=== PATIENT | male | born 1970 | race Caucasian/White ===

== ENCOUNTER 2017-08-17 12:14 | Observation (INO) | payer MEDICAID, SELFPAY ==
[2017-08-17 12:34] VITALS: BMI 22.9
[2017-08-17 12:35] VITALS: BP 134/88; PULSE 66; RESP 16; TEMP 36.8; O2SAT 100
[2017-08-17 12:49] VITALS: BMI 23.0
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
[2017-08-17 13:45] LABS: Absolute Lymphocyte Count 1.89 X10^3/ul (0.83-4.51); Absolute Neutrophil Count 6.5 X10^3/uL (2.0-7.7); Basophil# 0.03 X10^3/uL; Basophil% 0.3 % (0-1); Eosinophil# 0.04 X10^3/uL; Eosinophils% 0.4 % (0-5); Hematocrit 40.4 % (40-54); Hemoglobin 13.8 g/dl (13.0-16.5); Lymphocyte # 1.89 X10^3/ul (4.0); Mean Corp Hgb Conc 34.2 g/gl (32-36); Mean Corpuscular Hgb 32.1 pg (27.0-32.0); Monocyte# 0.46 X10^3/uL; Monocyte% 5.1 % (0-10); Neutrophil # 6.54 X10^3/uL (2.7-7.7); Platelet Count 302 K/mm3 (150-450); RBC Distribution Width CV 12.2 % (11.6-14.6)
[2017-08-17 13:46] LABS: POSITIVE COUNT NO; POSITIVE DIFFERENTIAL NO; POSITIVE MORPHOLOGY NO
[2017-08-17] MEDS: cloNIDine HCl 0.1 MG Tablet 0.2 MG PO (13:50)
[2017-08-17] MEDS: Buprenorphine HCl 2 MG TAB.SUBL SL ×2 (13:50→21:14)
[2017-08-17] MEDS: Dicyclomine 10 MG Capsule 20 MG PO ×2 (13:51→21:15)
[2017-08-17] MEDS: Methocarbamol 750 MG Tablet PO ×2 (13:51→21:14)
[2017-08-17 13:58] LABS: Amphetamine Urine VISTA NEGATIVE (<1000 ng/mL); Barbiturate Urine VISTA NEGATIVE (< 200 ng/mL); Benzodiazepine Urine VISTA NEGATIVE (< 200 ng/mL); Cocaine Urine VISTA NEGATIVE (< 300 ng/mL); Ecstacy Urine VISTA NEGATIVE (< 500 ng/mL); Methadone Urine VISTA NEGATIVE (< 300 ng/mL); PCP Urine VISTA NEGATIVE (< 25 ng/mL); THC Urine VISTA NEGATIVE (< 50 ng/mL); Vista UDS pH Range 6
[2017-08-17 13:59] LABS: AST(SGOT) 13 U/L (15-37); Alanine Aminotransfer ALT/SGPT 22 U/L (12-78); Albumin, Serum 3.8 g/dL (3.4-5.0); Alkaline Phosphatase 71 U/L (45-117); Anion Gap 8 (5-15); BUN 10 mg/dL (7-18); BUN/Creat Ratio 12.7 RATIO (10-20); Calcium,Total 9.2 mg/dL (8.5-10.1); Chloride 100 mmol/L (98-107); Creatinine, Serum 0.79 mg/dL (0.70-1.30); EST Glomerular Filtration Rate 113 mL/min (>60); Est Glom Filt Rate - Afr Amer 136 mL/min (>60); Glucose 99 mg/dL (70-110); Potassium 4.7 mmol/L (3.5-5.1); Protein, Total 7.8 g/dL (6.4-8.2); Sodium Level 138 mmol/L (136-145)
[2017-08-17 14:00] VITALS: BP 134/88; PULSE 66; RESP 16; TEMP 36.8
[2017-08-17 16:30] VITALS: BP 133/89; PULSE 76; RESP 18; TEMP 36.8; O2SAT 98
[2017-08-17 16:43] VITALS: BP 133/89; PULSE 76; RESP 18; TEMP 36.8
[2017-08-17] MEDS: cloNIDine HCl 0.1 MG Tablet PO ×2 (16:46→21:14)
[2017-08-17] MEDS: QUEtiapine 25 MG Tablet PO (16:46)
--- NOTE | 2017-08-17 17:04 | CHAPLAIN ---
Type of Pastoral Visit _x__ Initial Visit ___ Follow-up Visit ___ On-call Visit ___ General Patient Visit ___ Spiritual Assessment ___ Family Conference ___ Bereavement ___ Rapid Response ___ Code Blue ___ Other (describe below) Pastoral Care Referral From _x__ Patient ___ Family ___ Nurse ___ Physician ___ Video Production Assistant ___ Electronic Warfare Specialist _x - [facility] staff __ Other (describe below) Sacrament/Intervention _x__ Active listening ___ Anointing ___ Jew ___ Bereavement ___ Communion _x__ Vane exploration ___ _x__ Life review _x__ Prayer ___ Reconciliation ___ Sacrament of Sick _x__ Supportive presence ___ Wedding ___ Other (describe below) Pastoral Comments
[2017-08-17 21:03] VITALS: BP 154/94; PULSE 114; RESP 16; TEMP 37.2
[2017-08-17] MEDS: Ibuprofen 400 MG Tablet 800 MG PO (21:14)
[2017-08-17] MEDS: traZODone 50 MG Tablet PO (21:15)
--- NOTE | 2017-08-17 21:15 | NURSING ---
Nicotine patch not seen on patient's shoulder upon shift assessment. Patient stated he had removed it and he did not want patch. Offered to patient that patch is available if he changes his mind. Patch removed from trash and properly discarded.
[2017-08-18 01:40] VITALS: BP 124/79; PULSE 92; RESP 18; TEMP 36.6
[2017-08-18] MEDS: cloNIDine HCl 0.1 MG Tablet PO ×3 (01:47→20:21)
[2017-08-18] MEDS: QUEtiapine 25 MG Tablet PO ×3 (01:47→17:03)
[2017-08-18] MEDS: Acetaminophen 325 MG Tablet 650 MG PO ×2 (01:47→20:21)
[2017-08-18 05:48] VITALS: BP 122/85; PULSE 70; RESP 18; TEMP 36.8
[2017-08-18] MEDS: Dicyclomine 10 MG Capsule 20 MG PO ×2 (05:56→13:25)
[2017-08-18] MEDS: Ibuprofen 400 MG Tablet 800 MG PO ×2 (05:56→17:03)
[2017-08-18] MEDS: Methocarbamol 750 MG Tablet PO ×3 (05:56→20:21)
[2017-08-18] MEDS: Buprenorphine HCl 2 MG TAB.SUBL SL ×3 (05:56→20:50)
[2017-08-18 09:50] VITALS: BP 108/72; PULSE 59; RESP 16; TEMP 36.9
[2017-08-18] MEDS: Multivitamins,Ther W-Minerals Tablet 1 TABLET PO (09:56)
[2017-08-18 13:20] VITALS: BP 102/62; PULSE 54; RESP 16; TEMP 37.1
[2017-08-18 17:07] VITALS: BP 124/86; PULSE 81; RESP 18; TEMP 36.8
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
[2017-08-18 20:11] VITALS: BP 120/83; PULSE 69; RESP 16; TEMP 36.9
--- NOTE | 2017-08-18 20:32 | NURSING ---
Patient seems very encouraged at this time. Received text from Son who is also in rehab and says he is doing well. Patient showed message to this nurse and seems hopeful that they will all remain, as a family, drug free. He proceeded to show this nurse pictures/videos on his phone of his son. Patient remains fast paced in speech and often repeats himself. Will continue to monitor.
[2017-08-18] MEDS: traZODone 50 MG Tablet PO (20:50)
[2017-08-19] MEDS: Dicyclomine 10 MG Capsule 20 MG PO ×2 (04:49→11:33)
[2017-08-19] MEDS: Buprenorphine HCl 2 MG TAB.SUBL SL ×2 (04:49→18:11)
[2017-08-19] MEDS: Methocarbamol 750 MG Tablet PO ×3 (04:50→22:50)
[2017-08-19 04:51] VITALS: BP 131/86; PULSE 73; RESP 16; TEMP 36.5
[2017-08-19 08:00] VITALS: RESP 18
[2017-08-19] MEDS: Multivitamins,Ther W-Minerals Tablet 1 TABLET PO (09:25)
[2017-08-19 10:00] VITALS: BP 131/89; PULSE 70; RESP 18; TEMP 36.8
--- NOTE | 2017-08-19 10:34 | PCM.PROGNOTE ---
Patient Problems: Active and Suspected Problems Opiate withdrawal (Acute) Subjective: He is much more alert today. He no longer appears drowsy and is not diaphoretic. He is making much more sense today and is not perseverating. Is appropriate. He has a good appetite today and intake. He states he feels a little restless but other than that is asymptomatic. He is afebrile with stable vital signs. - Physical Exam General: Alert, Oriented x3, Cooperative, No apparent distress Lungs: Clear to auscultation Cardiovascular: Regular rate, Regular Rhythm, Normal S1, Normal S2, No murmurs Abdomen: Bowel Sounds Present, Soft, Non Tender, Non-Distended Extremities: No Calf Tenderness Skin: No rashes Neurological: Cranial nerves II-XII grossly intact, Neuro grossly intact Psych/Mental Status: Normal Affect, Appropriate Vital Signs Temp Pulse Resp BP Pulse Ox 97.7 F 73 18 131/86 98 08/19/17 04:51 08/19/17 04:51 08/19/17 08:00 08/19/17 04:51 08/17/17 16:30 Oxygen Delivery Method Room Air Weight: 146 lb 9.6 oz Body Mass Index (BMI) 22.9 Intake and Output for Last 24 Hours 08/17/17 08/18/17 08/19/17 23:59 23:59 22:59 Intake Total 500 800 320 Balance 500 800 320 Assessment/Plan Active and Suspected Problems Opiate withdrawal (Acute) Impressions 1. Acute opiate withdrawal 2. Addiction to heroin and Carfentanil...prior to that used prescription narcotics for many years. Has been using Suboxone for at least a year.....states he has been taking something for many years.......usually pills. 3. Marijuana usage - started as a teenager...used to grow and sell 4. Tobacco dependence Hepatitis panel is still pending. Continue with [facility] opiate withdrawal protocol He plans on attending [facility] outpatient drug counseling/rehab at discharge. He also plans on continuing to work full-time. His will be attending the same rehab program. He talked to his son on the phone last night who is still in [facility] program at [place] and his son is already asking if he threw away all the drug paraphernalia and if he has any money. He thinks his son is already planning on getting high as soon as he is discharged from [facility]. His son lives with him. He has another son who is also IVD user but is working and taking Suboxone everyday but still getting high every other weekend. It will be a real challenge for him to stay drug free in the same house with a son who is using. He is not sure if he wants to take Suboxone or not at [place].
--- NOTE | 2017-08-19 10:41 | PN_ITS ---
Patient Problems: Active and Suspected Problems Opiate withdrawal (Acute) Subjective: He is much more alert today. He no longer appears drowsy and is not diaphoretic. He is making much more sense today and is not perseverating. Is appropriate. He has a good appetite today and intake. He states he feels a little restless but other than that is asymptomatic. He is afebrile with stable vital signs. - Physical Exam General: Alert, Oriented x3, Cooperative, No apparent distress Lungs: Clear to auscultation Cardiovascular: Regular rate, Regular Rhythm, Normal S1, Normal S2, No murmurs Abdomen: Bowel Sounds Present, Soft, Non Tender, Non-Distended Extremities: No Calf Tenderness Skin: No rashes Neurological: Cranial nerves II-XII grossly intact, Neuro grossly intact Psych/Mental Status: Normal Affect, Appropriate Vital Signs Temp Pulse Resp BP Pulse Ox 97.7 F 73 18 131/86 98 08/19/17 04:51 08/19/17 04:51 08/19/17 08:00 08/19/17 04:51 08/17/17 16:30 Oxygen Delivery Method Room Air Weight: 146 lb 9.6 oz Body Mass Index (BMI) 22.9 Intake and Output for Last 24 Hours 08/17/17 08/18/17 08/19/17 23:59 23:59 22:59 Intake Total 500 800 320 Balance 500 800 320 Assessment/Plan Active and Suspected Problems Opiate withdrawal (Acute) Impressions 1. Acute opiate withdrawal 2. Addiction to heroin and Carfentanil...prior to that used prescription narcotics for many years. Has been using Suboxone for at least a year.....states he has been taking something for many years.......usually pills. 3. Marijuana usage - started as a teenager...used to grow and sell 4. Tobacco dependence Hepatitis panel is still pending. Continue with [facility] opiate withdrawal protocol He plans on attending [facility] outpatient drug counseling/rehab at discharge. He also plans on continuing to work full-time. His will be attending the same rehab program. He talked to his son on the phone last night who is still in [facility] program at [place] and his son is already asking if he threw away all the drug paraphernalia and if he has any money. He thinks his son is already planning on getting high as soon as he is discharged from [facility]. His son lives with him. He has another son who is also IVD user but is working and taking Suboxone everyday but still getting high every other weekend. It will be a real challenge for him to stay drug free in the same house with a son who is using. He is not sure if he wants to take Suboxone or not at [place].
[2017-08-19 14:00] VITALS: BP 144/82; PULSE 69; RESP 18; TEMP 36.5
[2017-08-19 18:00] VITALS: BP 148/102; PULSE 61; RESP 18; TEMP 36.8
[2017-08-19 22:41] VITALS: BP 143/95; PULSE 63; RESP 18; TEMP 36.6
[2017-08-19] MEDS: Ibuprofen 400 MG Tablet 800 MG PO (22:50)
[2017-08-19] MEDS: traZODone 50 MG Tablet PO (22:50)
[2017-08-20] MEDS: Buprenorphine HCl 2 MG TAB.SUBL SL (05:22)
[2017-08-20 05:24] VITALS: BP 135/87; PULSE 72; RESP 18; TEMP 36.9
[2017-08-20] MEDS: cloNIDine HCl 0.1 MG Tablet PO (05:27)
--- NOTE | 2017-08-20 09:32 | PCM.DC ---
- Discharge Diagnoses Current Active Problems: Current Active and Chronic Problems Opiate withdrawal (Acute) Heroin addiction (Chronic) Marijuana smoker (Chronic) Tobacco dependence (Chronic) You will use the following diet at home:: No restrictions Your food should be the consistency of: Regular Your liquids should be the consistency of: Regular/Thin Discharge Activity: Return to Normal Activity Call your doctor if you observe: Fever of 101 or Higher Allergies/Adverse Reactions: Allergies No Known Allergies Allergy (Verified 08/17/17 12:37) Medications to take at Discharge No Known/Unobtainable [No Known Home Medications] 08/17/17 Primary Care Physician: Care Physician,No Primary [Primary Care Provider] - Proposed Discharge Date: 08/20/17
[2017-08-20 09:45] VITALS: BP 133/90; PULSE 81; RESP 18; TEMP 36.7; O2SAT 100
[2017-08-20 09:49] VITALS: BP 133/90; PULSE 81; RESP 18; TEMP 36.7; O2SAT 100
--- NOTE | 2017-08-20 10:10 | NURSING ---
Per aliya Duke, request- (to fax to pt. discharge facility)- MAR and discharge instructions printed off and sent with aliya Esparza.
--- NOTE | 2017-08-20 11:23 | PCM.DC.SUM ---
Discharge Date and Diagnosis Date of Admission: 08/17/17 Date of Discharge: 08/20/17 - Primary Discharge Diagnosis Acute opiate withdrawal - Secondary Discharge Diagnosis Chronic Problems Heroin and Carfentanil addiction (Chronic) Marijuana smoker (Chronic) Tobacco dependence (Chronic) Hospital Course and Treatment Imaging Results: Laboratory Last Values WBC 9.0 K/mm3 (4.4-11.0) 08/17/17 13:24 RBC 4.30 M/mm3 (4.6-6.2) L 08/17/17 13:24 Hgb 13.8 g/dl (13.0-16.5) 08/17/17 13:24 Hct 40.4 % (40-54) 08/17/17 13:24 MCV 94.0 fL (80-94) 08/17/17 13:24 MCH 32.1 pg (27.0-32.0) H 08/17/17 13:24 MCHC 34.2 g/gl (32-36) 08/17/17 13:24 RDW 12.2 % (11.6-14.6) 08/17/17 13:24 RDW Differential 41.0 fl (35.1-43.9) 08/17/17 13:24 Plt Count 302 K/mm3 (150-450) 08/17/17 13:24 MPV 10.0 fl (6.2-12.0) 08/17/17 13:24 Immature Gran % (Auto) 0.200 % (0.0-0.9) 08/17/17 13:24 Neut % (Auto) 73.0 % (47-70) H 08/17/17 13:24 Lymph % (Auto) 21.0 % (19-41) 08/17/17 13:24 [place] % (Auto) 5.1 % (0-10) 08/17/17 13:24 Eos % (Auto) 0.4 % (0-5) 08/17/17 13:24 Baso % (Auto) 0.3 % (0-1) 08/17/17 13:24 Absolute Neuts (auto) 6.5 X10^3/uL (2.0-7.7) 08/17/17 13:24 Absolute Lymphs (auto) 1.89 X10^3/ul (0.83-4.51) 08/17/17 13:24 Total Counted Not Reportable 08/17/17 13:24 Sodium 138 mmol/L (136-145) 08/17/17 13:24 Potassium 4.7 mmol/L (3.5-5.1) 08/17/17 13:24 Chloride 100 mmol/L (98-107) 08/17/17 13:24 Carbon Dioxide 30.0 mmol/L (21.0-32.0) 08/17/17 13:24 Anion Gap 8 (5-15) 08/17/17 13:24 BUN 10 mg/dL (7-18) 08/17/17 13:24 Creatinine 0.79 mg/dL (0.70-1.30) 08/17/17 13:24 Estim Creat Clear Calc 110.40 ml/min 08/17/17 13:24 Est GFR (MDRD) Af Amer 136 mL/min (>60) 08/17/17 13:24 Est GFR (MDRD) Non-Af 113 mL/min (>60) 08/17/17 13:24 BUN/Creatinine Ratio 12.7 RATIO (10-20) 08/17/17 13:24 Glucose 99 mg/dL (70-110) 08/17/17 13:24 Calcium 9.2 mg/dL (8.5-10.1) 08/17/17 13:24 Total Bilirubin 0.60 mg/dL (0.20-1.00) 08/17/17 13:24 AST 13 U/L (15-37) L 08/17/17 13:24 ALT 22 U/L (12-78) 08/17/17 13:24 Alkaline Phosphatase 71 U/L (45-117) 08/17/17 13:24 Total Protein 7.8 g/dL (6.4-8.2) 08/17/17 13:24 Albumin 3.8 g/dL (3.4-5.0) 08/17/17 13:24 Globulin 4.0 g/dL (2.2-4.2) 08/17/17 13:24 Albumin/Globulin Ratio 1.0 RATIO (0.9-2.4) 08/17/17 13:24 Urine Opiates Screen NEGATIVE (< 300 ng/mL) 08/17/17 13:10 Urine Methadone Screen NEGATIVE (< 300 ng/mL) 08/17/17 13:10 Ur Barbiturates Screen NEGATIVE (< 200 ng/mL) 08/17/17 13:10 Ur Phencyclidine Scrn NEGATIVE (< 25 ng/mL) 08/17/17 13:10 Ur Amphetamines Screen NEGATIVE (<1000 ng/mL) 08/17/17 13:10 U Methamphetamin-MDMA NEGATIVE (< 500 ng/mL) 08/17/17 13:10 U Benzodiazepines Scrn NEGATIVE (< 200 ng/mL) 08/17/17 13:10 Urine Cocaine Screen NEGATIVE (< 300 ng/mL) 08/17/17 13:10 U Cannabinoids Screen NEGATIVE (< 50 ng/mL) 08/17/17 13:10 Ur Drug Screen Comment 08/17/17 13:10 none Operations: None Procedures: None Summary of Care Provided: The patient is a 47 year old M with a > 20 year hx of abuse of opiates. He started with marijuana as a teenager and progressed to oral narcotic abuse. He started using IV heroin when he could no longer get Percocet easily. He got off IV heroin and was using Subutex for the best year. His son who lives with him is an IVDA and has been using Carfentanil. He tried Carfentanil and then got hooked. He has been late for work and missing work recently so he presented to the [facility] office requesting admission for medical stabilization for acute opiate withdrawal. He was admitted to the hospital and the [facility] protocol for opiate withdrawal was initiated. CBC and CMP were unremarkable and the toxicology screen was negative. Hepatitis panel was ordered and is still pending at the time of discharge. On 08/20 he was alert with stable vital signs and he was afebrile. On physical examination the lungs were clear to auscultation, the heart had a regular rate and rhythm without murmur, the abdomen was and nontender and he had no rash and no evidence of any cellulitis. He plans on attending an outpatient program. His , who is also a narcotic abuser will also attend. His son finished a [facility] Program on 08/19 in [place] and used immediately upon DC. He is at high risk for relapse living in a household with an active IV drug user. Discharge Activity: Return to Normal Activity Call your doctor if you observe: Fever of 101 or Higher Home Medications: Medications to take at Discharge No Known/Unobtainable [No Known Home Medications] 08/17/17 Primary Care Physician: Care Physician,No Primary [Primary Care Provider] - Disposition: Home Minutes spent on discharge:: 30 Patient Condition:: Good Meaningful Use Info Meaningful Use Diagnoses (Choose all that apply): None applicable
[2017-08-22 12:08] LABS: HEPATITIS B SURFACE AG Confirm. indicated (Negative); Hepatitis A IgM Antibody Negative (Negative); Hepatitis B Core AB IgM Negative (Negative)
[2017-08-22 14:30] LABS: HIV 1/0/2 SCREEN 4TH GEN Non Reactive (Non Reactive); Hep C Antibodies 0.5 s/co ratio (0.0-0.9)
== END 2017-08-20 10:20 | disposition home or self-care (01) | DRG 773 ==
LOC: MS2 12-24 07:26
PROVIDERS: Admitting Provider Internal Medicine; Visit Provider Internal Medicine
DX: F11.23 Opioid dependence with withdrawal (principal); F17.210 Nicotine dependence, cigarettes, uncomplicated; F12.90 Cannabis use, unspecified, uncomplicated
CPT/HCPCS: 36415; 80053; 80074; 80307; 85025; 86703; 99218; 99406; G0378; G0379

== ENCOUNTER 2018-10-30 15:48 | Inpatient (IN) | payer MEDICAID, SELFPAY ==
[2018-10-30 16:04] VITALS: BP 152/111; PULSE 108; RESP 18; TEMP 36.9; O2SAT 100
[2018-10-30 16:08] VITALS: BMI 25.3
[2018-10-30 16:12] VITALS: BMI 25.4
--- NOTE | 2018-10-30 16:19 | EKG12_ITS ---
Test Reason : CARDIAC HISTORY Blood Pressure : / mmHG Vent. Rate : 082 BPM Atrial Rate : 082 BPM P-R Int : 124 ms QRS Dur : 086 ms QT Int : 380 ms P-R-T Axes : 066 044 030 degrees QTc Int : 443 ms Normal sinus rhythm Normal ECG Confirmed by BREANNA HENRY, JAMEE ([id number]), purchase request editor JUDSON DAVIS ([id number]) on 11/08/2018 2:45:29 PM Referred By: Juan Jose Mayes Confirmed By:JAMEE CARLOS MD
[2018-10-30 16:29] VITALS: PULSE 108; RESP 14; O2SAT 99
[2018-10-30 16:36] VITALS: BP 152/111; PULSE 108; RESP 16; TEMP 36.7
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
[2018-10-30] MEDS: Buprenorphine HCl 2 MG TAB.SUBL 4 MG SL (17:50)
[2018-10-30] MEDS: Loperamide 2 MG Capsule PO (17:51)
[2018-10-30] MEDS: Ibuprofen 600 MG Tablet PO (17:51)
[2018-10-30] MEDS: Dicyclomine 10 MG Capsule 20 MG PO (17:51)
[2018-10-30 18:06] LABS: Absolute Lymphocyte Count 1.91 X10^3/ul (0.83-4.51); Absolute Neutrophil Count 8.3 X10^3/uL (2.0-7.7); Basophil# 0.03 X10^3/uL; Basophil% 0.3 % (0-1); Eosinophil# 0.04 X10^3/uL; Eosinophils% 0.4 % (0-5); Hematocrit 37.9 % (40-54); Hemoglobin 12.9 g/dl (13.0-16.5); Lymphocyte # 1.91 X10^3/ul (4.0); Lymphocyte % 17.7 % (19-41); Mean Corpuscular Hgb 30.9 pg (27.0-32.0); Mean Corpuscular Volume 90.7 fL (80-94); Mean Platelet Vol. 10.2 fl (6.2-12.0); Monocyte# 0.47 X10^3/uL; Monocyte% 4.4 % (0-10); Neutrophil # 8.32 X10^3/uL (2.7-7.7); Neutrophil % 76.9 % (47-70); Platelet Count 343 K/mm3 (150-450); RBC Distribution Width CV 13.1 % (11.6-14.6); Red Blood Count 4.18 M/mm3 (4.6-6.2); White Blood Count 10.8 K/mm3 (4.4-11.0)
[2018-10-30 18:07] LABS: POSITIVE COUNT NO; POSITIVE DIFFERENTIAL NO; POSITIVE MORPHOLOGY NO
[2018-10-30 18:13] LABS: Prothrombin Time (Protime)PT. 13.1 SECONDS (11.7-14.9)
[2018-10-30] MEDS: cloNIDine HCl 0.1 MG Patch TRANSDERM. (18:19)
[2018-10-30] MEDS: Clindamycin HCl 150 MG Capsule 300 MG PO ×2 (18:20→22:12)
[2018-10-30 18:23] LABS: ALB/GLOB Ratio 0.8 RATIO (0.9-2.4); AST(SGOT) 28 U/L (15-37); Alanine Aminotransfer ALT/SGPT 49 U/L (16-61); Albumin, Serum 3.5 g/dL (3.2-5.0); Alkaline Phosphatase 121 U/L (45-117); Anion Gap 9 (5-15); BUN 11 mg/dL (7-18); BUN/Creat Ratio 12.1 RATIO (10-20); Chloride 105 mmol/L (98-107); Creatinine, Serum 0.91 mg/dL (0.70-1.30); EST Glomerular Filtration Rate 95 mL/min (>60); Est Glom Filt Rate - Afr Amer 115 mL/min (>60); Estimated Creatinine Clearance 94.83 ml/min; Globulin 4.5 g/dL (2.2-4.2); Glucose 117 mg/dL (74-106); Potassium 4.5 mmol/L (3.5-5.1); Sodium Level 140 mmol/L (136-145)
[2018-10-30 21:31] LABS: Amphetamine Urine VISTA POSITIVE (<1000 ng/mL); Barbiturate Urine VISTA NEGATIVE (< 200 ng/mL); Benzodiazepine Urine VISTA NEGATIVE (< 200 ng/mL); Cocaine Urine VISTA NEGATIVE (< 300 ng/mL); Ecstacy Urine VISTA NEGATIVE (< 500 ng/mL); Methadone Urine VISTA NEGATIVE (< 300 ng/mL); PCP Urine VISTA NEGATIVE (< 25 ng/mL); THC Urine VISTA NEGATIVE (< 50 ng/mL); Vista UDS pH Range 7
[2018-10-30 22:04] VITALS: BP 162/97; PULSE 99; RESP 16; TEMP 36.6
[2018-10-30] MEDS: Pramipexole Di-HCl 0.25 MG Tablet PO (22:13)
[2018-10-30] MEDS: hydrOXYzine PAM 25 MG Capsule 50 MG PO (22:13)
[2018-10-30] MEDS: Methocarbamol 750 MG Tablet PO (22:13)
[2018-10-31] MEDS: Dicyclomine 10 MG Capsule 20 MG PO (00:52)
[2018-10-31] MEDS: chlordiazePOXIDE 25 MG Capsule PO ×3 (00:52→14:40)
[2018-10-31 01:56] VITALS: BP 159/102; PULSE 97; RESP 16; TEMP 36.7
[2018-10-31] MEDS: Buprenorphine HCl 2 MG TAB.SUBL 4 MG SL ×2 (02:01→09:56)
[2018-10-31] MEDS: Ibuprofen 600 MG Tablet PO ×2 (02:01→09:55)
[2018-10-31] MEDS: Methocarbamol 750 MG Tablet PO ×2 (04:34→12:14)
[2018-10-31] MEDS: hydrOXYzine PAM 25 MG Capsule 50 MG PO ×2 (04:34→12:14)
[2018-10-31 05:55] VITALS: BP 149/98; PULSE 88; RESP 16; TEMP 36.6
[2018-10-31 08:24] VITALS: BP 148/92; PULSE 85; RESP 18; TEMP 36.9; O2SAT 100
[2018-10-31 08:48] VITALS: BP 148/92; PULSE 85; RESP 18; TEMP 36.9
--- NOTE | 2018-10-31 08:58 | PCM.PN.HOSP ---
Patient Problems: Active and Suspected Problems Cellulitis of left foot (Acute) Prescribed Clindamycin but has not been taking Subjective: Patient was seen and examined. No acute events overnight. He complains of severe restless legs. He also has hot and cold flashes. Denied any nausea vomiting or diarrhea. He has noted redness over the dorsum of the left arm. He admits to having last injected over the left hand. Denies any fever or chills Vitals/I&O's: Vital Signs Temp Pulse Resp BP Pulse Ox 98.4 F 85 18 148/92 H 100 10/31/18 08:48 10/31/18 08:48 10/31/18 08:48 10/31/18 08:48 10/31/18 08:24 Oxygen Delivery Method Room Air Weight: 73.5 kg Body Mass Index (BMI) 25.3 Intake and Output for Last 24 Hours 10/29/18 10/30/18 10/31/18 23:59 23:59 23:59 Intake Total 500 / 500 580 / 580 Balance 500 / 500 580 / 580 General: Alert, Oriented x3, Cooperative, - - Feels restless HEENT: Atraumatic, PERRLA, EOMI, Normocephalic Oral: Moist Mucosa Neck: Supple, No JVD, Negative Carotid Bruits Lungs: Clear to auscultation, Normal air movement Cardiovascular: Regular rate, Regular Rhythm, Normal S1, Normal S2, No murmurs Abdomen: Bowel Sounds Present, Soft, Non Tender, Non-Distended, No Hepato-splenomegaly Extremities: Edema - and redness over the dorsum of the left hand with mild edema over the metacarpal region. Skin: - - See above hand description Musculoskeletal: No Tenderness to Palpation of Joints or Extremities Lymphatic: No Cervical, Supraclavicular, or Inguinal Adenopathy Neurological: Cranial nerves II-XII grossly intact, Neuro grossly intact Psych/Mental Status: Normal Affect, Appropriate Laboratory Results 10/30/18 17:55: WBC 10.8, RBC 4.18 L, Hgb 12.9 L, Hct 37.9 L, MCV 90.7, MCH 30.9, MCHC 34.0, RDW 13.1, RDW Differential 43.0, Plt Count 343, MPV 10.2, Immature Gran % (Auto) 0.300, Neut % (Auto) 76.9 H, Lymph % (Auto) 17.7 L, [place] % (Auto) 4.4, Eos % (Auto) 0.4, Baso % (Auto) 0.3, Absolute Neuts (auto) 8.3 H, Absolute Lymphs (auto) 1.91, Total Counted Not Reportable 10/30/18 17:55: PT 13.1, INR 1.0 10/30/18 17:55: Sodium 140, Potassium 4.5, Chloride 105, Carbon Dioxide 26.0, Anion Gap 9, BUN 11, Creatinine 0.91, Estim Creat Clear Calc 94.83, Est GFR (MDRD) Af Amer 115, Est GFR (MDRD) Non-Af 95, BUN/Creatinine Ratio 12.1, Glucose 117 H, Calcium 9.0, Total Bilirubin 0.40, AST 28, ALT 49, Alkaline Phosphatase 121 H, Total Protein 8.0, Albumin 3.5, Globulin 4.5 H, Albumin/Globulin Ratio 0.8 L 10/30/18 20:30: Urine Opiates Screen POSITIVE H, Urine Methadone Screen NEGATIVE, Ur Barbiturates Screen NEGATIVE, Ur Phencyclidine Scrn NEGATIVE, Ur Amphetamines Screen POSITIVE H, U Methamphetamin-MDMA NEGATIVE, U Benzodiazepines Scrn NEGATIVE, Urine Cocaine Screen NEGATIVE, U Cannabinoids Screen NEGATIVE, Ur Drug Screen Comment Current Medications Acetaminophen (Tylenol) 500 mg PO Q4H PRN PRN PRN Reason: Temp > 100.4 F Al Hydroxide/Mg Hydroxide (Mylanta Ii) 30 ml PO Q6H PRN PRN PRN Reason: dyspesia Buprenorphine HCl (Buprenorphine Hcl) 4 mg SL Q8H [facility]; Taper Stop: 11/02/18 21:44 Last Admin: 10/31/18 02:01 Dose: 4 mg Chlordiazepoxide (Librium) 25 mg PO Q6H PRN PRN PRN Reason: Moderate-Severe Anxiety Last Admin: 10/31/18 08:27 Dose: 25 mg Clindamycin HCl (Cleocin) 300 mg PO 4X/DAY [facility] Stop: 11/06/18 22:01 Last Admin: 10/30/18 22:12 Dose: 300 mg Clonidine HCl (Catapres-Tts1) 0.1 mg TRANSDERM. Q7D@1000 [facility] Last Admin: 10/30/18 18:19 Dose: 0.1 mg Dicyclomine HCl (Bentyl) 20 mg PO Q6H PRN PRN PRN Reason: Abdomnial Discomfort Last Admin: 10/31/18 00:52 Dose: 20 mg Hydroxyzine Pamoate (Vistaril Pamoate Capsule) 50 mg PO Q6H PRN PRN PRN Reason: Mild Anxiety Last Admin: 10/31/18 04:34 Dose: 50 mg Ibuprofen (Motrin) 600 mg PO Q8H PRN PRN PRN Reason: Mild-Moderate Pain (1-5/10) Last Admin: 10/31/18 02:01 Dose: 600 mg Loperamide HCl (Imodium) 2 - 4 mg PO UD PRN PRN Reason: LOOSE STOOLS Last Admin: 10/30/18 17:51 Dose: 4 mg Methocarbamol (Methocarbamol) 750 mg PO Q6H PRN PRN PRN Reason: Muscle Aches Last Admin: 10/31/18 04:34 Dose: 750 mg Nicotine (Nicoderm Cq (Pbkc)) 21 mg TRANSDERM. DAILY DELTA Last Admin: 10/31/18 08:27 Dose: Not Given Ondansetron HCl (Zofran Odt) 4 mg PO Q6H PRN PRN PRN Reason: NAUSEA Pramipexole Dihydrochloride (Mirapex) 0.25 mg PO Q12H PRN PRN PRN Reason: Restless Legs Last Admin: 10/30/18 22:13 Dose: 0.25 mg Medical Necessity - Tobacco Use Smoking Status: Current every day smoker Tobacco Use: Cigarettes Assessment/Plan All Active Problems Cellulitis of left foot (Acute) Opiate withdrawal (Acute) 48-year-old male with past history of nicotine dependence, opiate dependence who has been admitted for medical stabilization for acute opioid withdrawal. 1. Acute opiate withdrawal in a known heroin user, CINA score this morning is 8, will continue to monitor on protocol 2. Cellulitis of the left hand, on clindamycin, previous cellulitis of the left foot and right forearm is resolved, continue to monitor 3. Hypertension, no formal diagnosis, blood pressure was elevated on admission, on clonidine patch, will continue to monitor 4. Polysubstance use, urine tox was positive for opiates and amphetamines, advised to quit 5. Nicotine dependence, advised to quit 6. DVT Ppx- early ambulation Code Visit Inpatient E&M: 81191 Subs Hosp L2
[2018-10-31] MEDS: Clindamycin HCl 150 MG Capsule 300 MG PO ×2 (09:55→14:40)
[2018-10-31] MEDS: Pramipexole Di-HCl 0.25 MG Tablet PO (09:55)
[2018-10-31 14:00] VITALS: BP 160/89; PULSE 87; RESP 18; TEMP 36.9
--- NOTE | 2018-10-31 14:22 | CHAPLAIN ---
Type of Pastoral Visit _x__ Initial Visit ___ Follow-up Visit ___ On-call Visit ___ General Patient Visit ___ Spiritual Assessment ___ Family Conference ___ Bereavement ___ Rapid Response ___ Code Blue ___ Other (describe below) Pastoral Care Referral From _x__ Patient ___ Family ___ Nurse ___ Physician ___ Referral Agent ___ Campus Security Officer ___ Other (describe below) Sacrament/Intervention _x__ Active listening ___ Anointing ___ Presybeterian ___ Bereavement ___ Communion ___ Vane exploration ___ _x__ Life review _x__ Prayer ___ Reconciliation ___ Sacrament of Sick _x__ Supportive presence ___ Wedding ___ Other (describe below) Pastoral Comments 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
[2018-10-31 14:38] VITALS: BP 160/89; PULSE 87; RESP 18; TEMP 36.9; O2SAT 98
--- NOTE | 2018-10-31 15:48 | NURSING ---
Pt requested to speak with this RN. Dressed when entered room. Explained to me that he needs to leave and go home and take care of his mom. His mom is diabetic and on oxygen and has no heat in her house as of now and he just needs to leave to help her. Home clindamycin returned to pt. Pt signed AMA form, medical charge entry specialist and Dr. Thompson aware.
--- NOTE | 2018-10-31 16:34 | DCINST_ITS ---
Allergies/Adverse Reactions: Allergies No Known Allergies Allergy (Verified 08/17/17 12:37) Medications to take at Discharge Clindamycin HCl 300 mg PO 4X/DAY 10/30/18 Primary Care Physician: Care Physician,No Primary [Primary Care Provider] - Test Results: Test results from this visit will be discussed in further detail at your follow- up appointment, if applicable.
--- NOTE | 2018-10-31 16:36 | DS.PCM_ITS ---
Discharge Date and Diagnosis Date of Admission: 10/30/18 Date of Discharge: 10/31/18 - Primary Discharge Diagnosis Acute opiate withdrawal Nicotine dependence Cellulitis of the left hand - Secondary Discharge Diagnosis Chronic Problems Heroin addiction (Chronic) has been using Carfentanyl Marijuana smoker (Chronic) Tobacco dependence (Chronic) Hospital Course and Treatment None Operations: None Procedures: None Summary of Care Provided: 48-year-old male with past history of nicotine dependence, opiate dependence who has been admitted for medical stabilization for acute opioid withdrawal. 1. Acute opiate withdrawal in a known heroin user, with a [facility] protocol 2. Cellulitis of the left hand, on clindamycin, previous cellulitis of the left foot and right forearm was resolved. 3. Hypertension, no formal diagnosis, blood pressure was elevated on admission, on clonidine patch, 4. Polysubstance use, urine tox was positive for opiates and amphetamines, advised to quit 5. Nicotine dependence, advised to quit Patient walked out of the floor saying his mother was unwell he needed to attend to the mother. Did not give a chance for team to prescribe medications. Subjective: See progress note of the day Objective: See progress note of the day - Physical Exam Vital Signs Temp Pulse Resp BP Pulse Ox 98.4 F 87 18 160/89 H 98 10/31/18 14:38 10/31/18 14:38 10/31/18 14:38 10/31/18 14:38 10/31/18 14:38 Oxygen Delivery Method Room Air Weight: 73.5 kg Body Mass Index (BMI) 25.3 Intake and Output for Last 24 Hours 10/29/18 10/30/18 10/31/18 23:59 23:59 23:59 Intake Total 500 / 500 940 / 940 Balance 500 / 500 940 / 940 Laboratory Tests Past 24 Hrs 10/30/18 10/30/18 10/30/18 17:55 17:55 17:55 WBC 10.8 RBC 4.18 L Hgb 12.9 L Hct 37.9 L MCV 90.7 MCH 30.9 MCHC 34.0 RDW 13.1 RDW Differential 43.0 Plt Count 343 MPV 10.2 Immature Gran % (Auto) 0.300 Neut % (Auto) 76.9 H Lymph % (Auto) 17.7 L [place] % (Auto) 4.4 Eos % (Auto) 0.4 Baso % (Auto) 0.3 Absolute Neuts (auto) 8.3 H Absolute Lymphs (auto) 1.91 Total Counted Not Reportable PT 13.1 INR 1.0 Sodium 140 Potassium 4.5 Chloride 105 Carbon Dioxide 26.0 Anion Gap 9 BUN 11 Creatinine 0.91 Estim Creat Clear Calc 94.83 Est GFR (MDRD) Af Amer 115 Est GFR (MDRD) Non-Af 95 BUN/Creatinine Ratio 12.1 Glucose 117 H Calcium 9.0 Total Bilirubin 0.40 AST 28 ALT 49 Alkaline Phosphatase 121 H Total Protein 8.0 Albumin 3.5 Globulin 4.5 H Albumin/Globulin Ratio 0.8 L Urine Opiates Screen Urine Methadone Screen Ur Barbiturates Screen Ur Phencyclidine Scrn Ur Amphetamines Screen U Methamphetamin-MDMA U Benzodiazepines Scrn Urine Cocaine Screen U Cannabinoids Screen Ur Drug Screen Comment 10/30/18 20:30 WBC RBC Hgb Hct MCV MCH MCHC RDW RDW Differential Plt Count MPV Immature Gran % (Auto) Neut % (Auto) Lymph % (Auto) [place] % (Auto) Eos % (Auto) Baso % (Auto) Absolute Neuts (auto) Absolute Lymphs (auto) Total Counted PT INR Sodium Potassium Chloride Carbon Dioxide Anion Gap BUN Creatinine Estim Creat Clear Calc Est GFR (MDRD) Af Amer Est GFR (MDRD) Non-Af BUN/Creatinine Ratio Glucose Calcium Total Bilirubin AST ALT Alkaline Phosphatase Total Protein Albumin Globulin Albumin/Globulin Ratio Urine Opiates Screen POSITIVE H Urine Methadone Screen NEGATIVE Ur Barbiturates Screen NEGATIVE Ur Phencyclidine Scrn NEGATIVE Ur Amphetamines Screen POSITIVE H U Methamphetamin-MDMA NEGATIVE U Benzodiazepines Scrn NEGATIVE Urine Cocaine Screen NEGATIVE U Cannabinoids Screen NEGATIVE Ur Drug Screen Comment Discharge Diet: No Restrictions Discharge Activity: Return to Normal Activity Home Medications: Medications to take at Discharge Clindamycin HCl 300 mg PO 4X/DAY 10/30/18 Primary Care Physician: Care Physician,No Primary [Primary Care Provider] - Disposition: Against Medical Advice Minutes spent on discharge:: 25 Patient Condition:: Stable Medical Necessity - Tobacco Use Smoking Status: Current every day smoker Tobacco Use: Cigarettes Meaningful Use Info Meaningful Use Diagnoses (Choose all that apply): None applicable Code Visit Inpatient E&M: 74894 Disch Hosp
--- OUTSIDE RECORDS SUMMARY | 2019-01-04 15:27 | XMS RPT_ITS | Summary of Care ---
:1970 Author Organization [facility] Address [address] [place] [address] Phone Care Team Providers Name Role Phone Unavailable Primary Care Provider Unavailable Reason for Visit Reason Comments Cellulitis Ambulated to ED with c/o l foot pain/redness. 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 Developed redness swelling and afterward. Finished antibiotic yesterday. Pain and redness worse today. Encounter Details Date Type Department Care Team Description 10/26/2018 Emergency [facility] Emergency Medicine [address] [place] [id number] Allergies No Known Allergiesas of this encounter Medications Prescription Sig. Disp. Refills Start Date End Date Status clindamycin 300 MG Take 1 capsule 28 capsule 0 10/26/2018 11/02/2018 Active Cap by mouth 4 times daily for 7 days. as of this encounter Social History Tobacco Use Types Packs/Day Years Used Date Current Every Day Smoker 1 Smokeless Tobacco: Never Used Alcohol Use Drinks/Week oz/Week Comments No Sex Assigned at Date Recorded Not on file as of this encounter Last Filed Vital Signs Vital Sign Reading Time Taken Blood Pressure 118/70 10/26/2018 3:25 AM EST Pulse 95 10/26/2018 3:25 AM EST Temperature 36.8 ??C (98.2 ??F) 10/26/2018 12:48 AM EST Respiratory Rate 18 10/26/2018 3:25 AM EST Oxygen Saturation 99% 10/26/2018 2:45 AM EST Inhaled Oxygen Concentration - - Weight - - Height 170.2 cm (5' 7) 10/26/2018 12:50 AM EST Body Mass Index - - in this encounter Discharge Instructions The following attachments cannot be sent through Care Everywhere.Skin Infection, Cellulitis ([place])in this encounter Plan of Treatment Health Maintenance Due Date Last Done Comments HIV SCREENING DISCUSSION 1985 TETANUS 1990 TDAP (ADULT) 1991 LIPID SCREENING 2012 INFLUENZA VACCINE (#1) 2018 as of this encounter Visit Diagnoses Diagnosis Cellulitis of foot, left - Primary Cellulitis and abscess of foot, except toes Administered Medications Inactive Administered Medications - up to 3 most recent administrations Medication Order MAR Action Action Date Dose Rate Site ketorolac (TORADOL) injection 15 mg Given 10/26/2018 01:08 EST 15 mg 15 mg, Intravenous, ONCE, 1 dose, 10/26/18 at 0100 vancomycin (VANCOCIN) 1,000 mg $$New Bag$$ 10/26/2018 01:08 EST 1,000 mg 100 mL/hr in dextrose 200 ml premix IVPB 1,000 mg, Intravenous, Administer over 120 Minutes, ONCE, 1 dose, 10/26/18 at 0130 in this encounter
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
== END 2018-10-31 15:43 | disposition left against medical advice (07) | DRG 770 ==
PROVIDERS: Admitting Provider Internal Medicine; Referring Provider Internal Medicine; Visit Provider Internal Medicine
DX: F11.23 Opioid dependence with withdrawal (principal); F12.90 Cannabis use, unspecified, uncomplicated; L03.116 Cellulitis of left lower limb; F17.210 Nicotine dependence, cigarettes, uncomplicated; I80.8 Phlebitis and thrombophlebitis of other sites; L03.114 Cellulitis of left upper limb
CPT/HCPCS: 36415; 80053; 80307; 85025; 85610; 93005; 99406